=== PATIENT | female | born 1985 | race Caucasian/White ===

== ENCOUNTER 2018-05-16 20:57 | Emergency (ER) | payer OTHER ==
[2018-05-16 21:10] VITALS: Ht 160 cm
[2018-05-16 21:48] LABS: microscopic required? YES; urine erythrocyte 3+ (NEGATIVE)
[2018-05-16 21:57] LABS: BASOPHIL % 0.3 % (0-2); RED CELL DISTRIBUTION WIDTH 12.9 % (11.5-14.5)
[2018-05-16 21:59] LABS: PLATELET COUNT 416 x10^3mcL (130-400)
[2018-05-16 22:39] VITALS: BP 134/71
== END 2018-05-16 23:43 | disposition home or self-care (01) ==
LOC: ED 20:57
PROVIDERS: Emergency Medicine
DX: O20.0 Threatened abortion (principal)
CPT/HCPCS: 36415